=== PATIENT | female | born 1950 | race Caucasian/White ===

== ENCOUNTER 2020-11-01 11:51 | Outpatient (CLI) | payer MEDICARE ==
[2020-11-01 13:40] LABS: Mean Corpuscular Volume 88.4 fl (81.6-98.3); Mean Platelet Volume 10.3 fl (7.4-10.4); Platelet Count 382 10x3/uL (150-450); RBC Distribution Width 12.6 % (11.5-14.5); Red Blood Cell (RBC) Count 4.66 10x6/uL (3.90-5.03); White Blood Cell (WBC) Count 9.3 10x3/uL (3.5-10.5)
[2020-11-01 14:34] LABS: INR-International Normal Ratio 0.9; PTT 24.2 sec (22.0-33.0); Prothrombin Time 10.1 sec (9.5-12.1)
[2020-11-02 01:16] LABS: SARS-CoV-2 PCR by NAA Not Detected (NotDetected)
== END 2020-11-01 11:52 | disposition home or self-care (01) ==
LOC: LABBT 11:51
PROVIDERS: ATTEND Neurological Surgery
DX: Z01.818 Encounter for other preprocedural examination (principal); M48.04 Spinal stenosis, thoracic region; M48.02 Spinal stenosis, cervical region; Z20.822 Contact with and (suspected) exposure to COVID-19
CPT/HCPCS: 85027; 85610; 85730; U0003; U0005; 87635; 93005; 93010

== ENCOUNTER 2020-11-06 05:32 | Inpatient (IN) | payer MEDICARE ==
[2020-11-03 13:16] VITALS: BMI 26.5
[2020-11-06] MEDS ORDERED: Bupivacaine PF 0.5% 30 ML VIAL ONE (06:10)
[2020-11-06] MEDS ORDERED: EPINEPHrine 1 MG/ML AMP ONE (06:10)
[2020-11-06] MEDS ORDERED: Thrombin 5000 UNITS/5 ML VIAL ONE (06:11)
[2020-11-06] MEDS ORDERED: Bacitracin Zinc Ointment 30 gm TUBE ONE (06:11)
[2020-11-06] MEDS ORDERED: Fentanyl 100 MCG/2 ML VIAL ONE ×4 (06:20→13:00)
[2020-11-06] MEDS ORDERED: Lidocaine 1% PF 5 ML VIAL ONE (07:04)
[2020-11-06] MEDS ORDERED: Dexamethasone 20 MG/5 ML VIAL ONE (07:04)
[2020-11-06] MEDS ORDERED: Vecuronium 10 MG VIAL ONE (07:04)
[2020-11-06] MEDS ORDERED: PHENYLEPHRINE-NS 100 MCG/ML 10 ML SYRINGE ONE ×2 (07:04→10:06)
[2020-11-06] MEDS ORDERED: PROPOFOL 200 MG/20 ML VIAL ONE (07:04)
[2020-11-06] MEDS ORDERED: Rocuronium Bromide 10 MG/ML (10ML VIAL) ONE (07:04)
[2020-11-06] MEDS ORDERED: Ondansetron PF 4 MG/2 ML Vial ONE (07:04)
[2020-11-06] MEDS ORDERED: ePHEDrine Sulfate 50 MG/10 ML VIAL ONE (07:04)
[2020-11-06] MEDS ORDERED: Metoclopramide HCl 10 MG/2 ML VIAL ONE (07:04)
[2020-11-06] MEDS ORDERED: SUGAMMADEX SODIUM 200 MG/2 ML VIAL ONE (08:41)
[2020-11-06] MEDS ORDERED: HYDROmorphone 2 MG/ML VIAL SLOW IVP PRN (11:01)
[2020-11-06] MEDS ORDERED: Ondansetron HCl/PF 4 MG/2 ML Vial IVP PRN (11:01)
[2020-11-06] MEDS ORDERED: Ondansetron PF 4 MG/2 ML Vial IVP PRN (11:58)
[2020-11-06] MEDS ORDERED: Mag-Al 1200 mg/1200 mg/30 ML UDCUP PO PRN (11:58)
[2020-11-06] MEDS ORDERED: diphenhydrAMINE 25 MG CAP PO PRN (11:58)
[2020-11-06] MEDS ORDERED: Milk Of Magnesia 30 ML UDCUP PO PRN (11:58)
[2020-11-06] MEDS ORDERED: diphenhydrAMINE 50 MG/ML VIAL IVP PRN (11:58)
[2020-11-06] MEDS ORDERED: HYDROcodone/Acetaminophen 7.5/325 mg Tablet PO PRN (11:58)
[2020-11-06] MEDS ORDERED: Acetaminophen/Codeine 30-300mg Tablet PO PRN (11:58)
[2020-11-06] MEDS ORDERED: Bisacodyl 10 MG SUPP PR PRN (11:58)
[2020-11-06] MEDS ORDERED: Scopolamine 1.5 mg/72 hour Patch TD SCH (12:00)
[2020-11-06] MEDS ORDERED: HYDROmorphone 2 MG/ML VIAL ONE ×2 (12:17→13:43)
[2020-11-06] MEDS ORDERED: CEFAZOLIN 2 GM in Premix Bag 1 BAG IVPB SCH (15:00)
[2020-11-06] MEDS: tiZANidine HCl 4 MG TAB PO PRN (15:54)
[2020-11-06] MEDS: Morphine 4 MG/ML VIAL SLOW IVP PRN ×2 (15:54→19:36)
[2020-11-06] MEDS: Sodium Chloride 0.9% 1,000 ML IV SCH (15:58)
[2020-11-06] MEDS: HYDROcodone/Acetaminophen 7.5/325 mg Tablet PO PRN ×2 (17:07→21:18)
[2020-11-06] MEDS: Acetaminophen/Codeine 30-300mg Tablet PO PRN (18:48)
[2020-11-06] MEDS: CEFAZOLIN 2 GM in Premix Bag 1 BAG IVPB SCH (19:37)
[2020-11-07] MEDS: Acetaminophen/Codeine 30-300mg Tablet PO PRN ×5 (00:16→20:44)
[2020-11-07] MEDS: tiZANidine HCl 4 MG TAB PO PRN ×4 (00:17→20:43)
[2020-11-07] MEDS: HYDROcodone/Acetaminophen 7.5/325 mg Tablet PO PRN ×4 (04:23→18:54)
[2020-11-07] MEDS: CEFAZOLIN 2 GM in Premix Bag 1 BAG IVPB SCH ×2 (04:24→11:23)
[2020-11-07] MEDS: Sodium Chloride 0.9% 1,000 ML IV SCH ×2 (06:13→13:43)
[2020-11-07] MEDS ORDERED: Albuterol Sulfate 2.5 mg/3 ml Neb NEB PRN (10:26)
[2020-11-07] MEDS ORDERED: Non-Formulary Item 1 EACH (Albuterol Sulfate [Proair Hfa] 8.5 GM Hfa.Aer.Ad) INH PRN (10:26)
[2020-11-07] MEDS ORDERED: Albuterol 200 PUFF (6.7GM INHALER) INH PRN (10:55)
[2020-11-07] MEDS: Mometasone 200 MCG/Formoterol 5 MCG 120 PUFF INHALER INH SCH (19:30)
[2020-11-07] MEDS ORDERED: [UNRECOGNIZED DRUG - OTHER] INH SCH (21:00)
[2020-11-07] MEDS ORDERED: FLUTICASONE INH SCH (21:00)
[2020-11-07] MEDS ORDERED: SALMETEROL INH SCH (21:00)
[2020-11-08] MEDS: HYDROcodone/Acetaminophen 7.5/325 mg Tablet PO PRN ×3 (00:59→12:17)
[2020-11-08] MEDS: Acetaminophen/Codeine 30-300mg Tablet PO PRN ×3 (03:50→14:18)
[2020-11-08] MEDS: tiZANidine HCl 4 MG TAB PO PRN ×2 (03:50→10:25)
[2020-11-08] MEDS: Sodium Chloride 0.9% 1,000 ML IV SCH (05:47)
[2020-11-08] MEDS: Mometasone 200 MCG/Formoterol 5 MCG 120 PUFF INHALER INH SCH ×2 (08:08→18:06)
[2020-11-08] MEDS ORDERED: Non-Formulary Item 1 EACH (Losartan/Hydrochlorothiazide [Losartan-Hctz 100-12.5 Mg Tab] 1 PO SCH (09:00)
[2020-11-08] MEDS ORDERED: Montelukast Sodium 10 mg Tablet PO SCH ×2 (09:00)
[2020-11-08] MEDS ORDERED: Losartan 25 MG TAB PO SCH (09:00)
[2020-11-08] MEDS ORDERED: Atorvastatin Calcium 10 MG TAB PO SCH (09:00)
[2020-11-08] MEDS ORDERED: Hydrochlorothiazide 25 MG TAB PO SCH (09:00)
[2020-11-08 15:42] VITALS: BP 125/60; TEMP 98.8
== END 2020-11-08 16:01 | disposition home or self-care (01) | DRG 472 ==
LOC: SDC 05:32 → SJJU 11:58
PROVIDERS: ADMIT Neurological Surgery; ATTEND Neurological Surgery
PROC: 0RG2071 Fusion of 2 or more Cervical Vertebral Joints with Autologous Tissue Substitute, Posterior Approach, Posterior Column, Open Approach (ICD-10-PCS; principal; 2020-11-06)
PROC: 0RB30ZZ Excision of Cervical Vertebral Disc, Open Approach (ICD-10-PCS; 2020-11-06)
DX: M48.02 Spinal stenosis, cervical region (principal); G99.2 Myelopathy in diseases classified elsewhere; Z20.822 Contact with and (suspected) exposure to COVID-19; M19.90 Unspecified osteoarthritis, unspecified site; J45.909 Unspecified asthma, uncomplicated; I10 Essential (primary) hypertension; M81.0 Age-related osteoporosis without current pathological fracture; E78.5 Hyperlipidemia, unspecified; G89.4 Chronic pain syndrome; S12.3 Fracture of fourth cervical vertebra; Z90.710 Acquired absence of both cervix and uterus; Z79.51 Long term (current) use of inhaled steroids; Z79.899 Other long term (current) drug therapy; Z88.5 Allergy status to narcotic agent; Z88.8 Allergy status to other drugs, medicaments and biological substances; Z97.4 Presence of external hearing-aid
CPT/HCPCS: 76000; 90471; 90732; C1713; C1768; G0009; J0171; J0690; J1100; J1170; J2270; J2405; J2704; J2765; J3010; J3370; J3490; S0020

== ENCOUNTER 2022-03-19 15:55 | Outpatient (CLI) | payer MEDICARE ==
[2022-03-19 16:45] LABS: Hemoglobin 14.5 g/dL (12.0-15.5); Mean Corpuscular HGB CONC 33.6 g/dL (32.0-36.0); Mean Corpuscular Hemoglobin 30.1 pg (27.0-33.0); Mean Corpuscular Volume 89.8 fl (81.6-98.3); Mean Platelet Volume 9.2 fl (7.4-10.4); Platelet Count 403 10x3/uL (150-450); RBC Distribution Width 12.8 % (11.5-14.5); Red Blood Cell (RBC) Count 4.81 10x6/uL (3.90-5.03); White Blood Cell (WBC) Count 10.4 10x3/uL (3.5-10.5)
[2022-03-19 17:00] LABS: INR-International Normal Ratio 0.9; PTT 23.9 sec (22.0-33.0); Prothrombin Time 9.4 sec (9.5-12.1)
[2022-03-19 17:01] LABS: Anion Gap 13 mmol/L (10-20); BUN (Urea Nitrogen) 14 mg/dL (9.8-20.1); Calc. Creatinine Clearance 0 mL/min (70-130); Calcium 9.5 mg/dL (7.8-10.44); Carbon Dioxide 30 mmol/L (23-31); Chloride 97 mmol/L (98-107); Estimated GFR 69; Glucose 111 mg/dL (83-110); Potassium 3.8 mmol/L (3.5-5.1); Sodium 136 mmol/L (136-145)
== END 2022-03-19 15:56 | disposition home or self-care (01) ==
LOC: LABBT 15:55
PROVIDERS: ATTEND Neurological Surgery
DX: Z01.812 Encounter for preprocedural laboratory examination (principal); Z20.822 Contact with and (suspected) exposure to COVID-19
CPT/HCPCS: 80048; 85027; 85610; 85730; 87811